=== PATIENT | female | born 1960 | race Caucasian/White ===

== ENCOUNTER 2016-05-24 23:45 | Emergency (ER) | payer MEDICARE, MEDICAID ==
[~2016-05-24] VITALS: Ht 160 cm; Wt 54.5 kg
[~2016-05-24 23:45] MED LIST: ABILIFY 10MG TA10 MG PO; ALBUTEROL0.09 MG/A1 IH; ANTIVERT 25MG25 MG PO; ATENOLOL; ATIVAN 0.50.5 MG/TAB PO; ATROVENT INHALE14 GM IH; BENADRYL25 M2 PO; CHANTIX0.5 MG PO; CLEOCIN HCL300 MG PO; CORTISPORIN OTI10 ML OT; DIAZEPAM PO; DOXYCYCLINE 10100 MG PO; DUONEB 3 MG/3 ML3 ML IH; FLEXERIL 1010 MG/TAB PO; FORADIL IH; INDERAL 10MG10 MG PO; IPRATROPIUM BROM3 M1 IH; LEVAQUIN 750MG750 M1 PO; LEXAPRO 10MG10 MG PO; LORTAB 5/500 501 TAB PO; MEDROL 4MG DOSPA4 MG PO; MS CONTIN 330 MG/TAB PO; NO HOME MEDICATIONS; NORCO 325 MG-51 TAB PO; NORCO 325 MG-7.1 TAB PO; PERCOCET 325 MG1 TA2 PO; PREDNISONE20 MG PO; PREMARIN0.625 MG PO; PROAIR HFA0.09 MG/AC IH; PROPRANOLOL; PROZAC 10MG10 MG PO; RISPERDAL 0.20.25 MG; RISPERDAL 0.20.25 MG PO; RISPERDAL 0.5M0.5 MG PO; RISPERDOL; RT ADVAIR 228 DISKUS IH; RT ALBUTER2.5 MG/0.5; SPIRIVA INH IH; SUDAFED30 MG PO; TYLENOL 500MG500 MG PO; TYLENOL ARTHRI650 M1 PO; TYLENOL W/COD1 UDTAB PO; ULTRAM 50MG TAB50 MG PO; VALIUM 5MG T5 MG/TAB PO; VOLTAREN 75 DR75 MG PO; WELLBUTRIN SR150 M1 PO; ZITHROMAX 250M250 MG PO; ZITHROMAX Z PA250 MG PO; ZOFRAN ODT4 MG PO; zyprexa
[2016-05-24 23:53] VITALS: TEMP 99.6
[2016-05-25] MEDS ORDERED: INDERAL 10MG10 MG PO (00:07)
[2016-05-25] MEDS ORDERED: VENTOLIN0.09 MG IH (00:07)
[2016-05-25] MEDS ORDERED: NORCO 325 MG-51 TAB PO (00:07)
[2016-05-25] MEDS ORDERED: VALIUM 5MG T5 MG/TAB PO (00:08)
[2016-05-25] MEDS ORDERED: BREO IH (00:08)
[2016-05-25 00:58] LABS: BASO # 0.1 (0.0-0.2); BASO % 0.5 % (0.0-2.0); EOS # 0.2 (0.0-0.7); EOS % 1.4 % (0-4.0); GRAN # 9.4 (1.4-6.5); HEMOGLOBIN 12.1 g/dl (12.5-16.0); LYMPH # 2.7 (1.2-3.4); LYMPH % 20.4 % (20.0-51.0); MEAN CELL VOLUME 89 fl (80.0-100.0); MEAN CORPUSCULAR HEMOGLOBIN 31 pg (27.0-31.0); MEAN CORPUSCULAR HGB CONC 34 g/dl (33.0-37.0); MEAN PLATELET VOLUME 10.1 fl (7.4-10.4); MONO # 0.9 (0.1-0.6); MONO % 6.4 % (1.7-9.3); PLATELET COUNT 229 K/mm3 (130-400); RED BLOOD COUNT 3.96 M/mm3 (4.10-5.30); REDCELL DISTRIBUTION WIDTH-CV 14.3 % (11.5-14.5); WHITE BLOOD COUNT 13.2 K/mm3 (4.8-10.8)
[2016-05-25 01:10] LABS: HEMATOCRIT 35.3 % (37.0-47.0); INFLUENZA B NEGATIVE
[2016-05-25 01:14] LABS: PH 5 (5-8); SQUAMOUS EPITHELIAL 0-2 /hpf; URINE APPEARANCE Clear; URINE BACTERIA None Seen /hpf; URINE BILIRUBIN Negative (NEGATIVE); URINE BLOOD 1+ (NEGATIVE); URINE COLOR Yellow; URINE GLUCOSE Negative (NEGATIVE); URINE KETONE Negative (NEGATIVE); URINE RBC 0-2 /hpf; URINE WBC 0-2 /hpf
[2016-05-25 01:40] LABS: ERYTHROCYTE SEDIMENTATION RATE 90 mm/hr (0-30)
[2016-05-25 02:01] LABS: ADJUSTED CALCIUM 8.8 mg/dL (8.4-10.2); ALBUMIN 3.8 gm/dL (3.5-5.0); BILIRUBIN,TOTAL 0.7 mg/dL (0.0-1.0); CALCIUM 8.6 mg/dL (8.4-10.2); CREATININE, serum 0.74 mg/dL (0.52-1.25); POTASSIUM 3.6 mmol/L (3.4-5.0); TOTAL PROTEIN 7.4 gm/dL (6.4-8.2)
[2016-05-25 02:35] LABS: C-REACTIVE PROTEIN 13.5 mg/dL (0.0-0.9)
[2016-05-25] MEDS ORDERED: ZITHROMAX 250M250 MG PO (02:54)
[2016-05-25 02:57] VITALS: BP 110/78; PULSE 92
[2016-05-26] MEDS ORDERED: PROVENTIL INH (17:57)
== END 2016-05-25 03:05 | disposition home or self-care (01) ==
LOC: COL.ER 23:45
PROVIDERS: Physician Assistant
DX: Z02.89 Encounter for other administrative examinations (principal)

== ENCOUNTER 2016-05-26 14:37 | Inpatient (IN) | payer MEDICARE, MEDICAID ==
[~2016-05-26] VITALS: Ht 160 cm; Wt 57.7 kg
[~2016-05-26 14:37] MED LIST changes: +BREO IH; +VENTOLIN0.09 MG IH
[2016-05-26 15:33] LABS: BASO # 0.1 (0.0-0.2); BASO % 0.5 % (0.0-2.0); EOS # 0.2 (0.0-0.7); EOS % 1.3 % (0-4.0); GRAN # 12.1 (1.4-6.5); GRAN % 81.2 % (42.2-75.2); HEMOGLOBIN 12.5 g/dl (12.5-16.0); LYMPH # 1.7 (1.2-3.4); LYMPH % 11.4 % (20.0-51.0); MEAN CELL VOLUME 89 fl (80.0-100.0); MEAN CORPUSCULAR HEMOGLOBIN 30 pg (27.0-31.0); MEAN CORPUSCULAR HGB CONC 34 g/dl (33.0-37.0); MEAN PLATELET VOLUME 9.9 fl (7.4-10.4); MONO # 0.8 (0.1-0.6); MONO % 5.2 % (1.7-9.3); PLATELET COUNT 268 K/mm3 (130-400); RED BLOOD COUNT 4.13 M/mm3 (4.10-5.30); WHITE BLOOD COUNT 14.9 K/mm3 (4.8-10.8)
[2016-05-26 15:33] LABS: ARTERIAL BLD GAS O2 SATURATION 98.3 % (92-100); ARTERIAL BLD GAS TCO2 CT 26.3; ARTERIAL BLOOD GAS BASE EXCESS 2.7 (-2-2); ARTERIAL BLOOD GAS HCO3 25.3 meq/L (22-26); OXYHEMOGLOBIN 96.9 %
[2016-05-26 15:34] LABS: HEMATOCRIT 36.6 % (37.0-47.0)
[2016-05-26 15:35] LABS: ARTERIAL BLOOD GAS PO2 135.3 mmHg (80-100); ARTERIAL BLOOD GAS PO2T 135.3 (80-100)
[2016-05-26 15:36] LABS: ALLEN TEST YES; ALLENS TEST RESULT PASS; ATS? YES
[2016-05-26 15:45] LABS: ADJUSTED CALCIUM 8.7 mg/dL (8.4-10.2); ALANINE AMINOTRANSFERASE 22 U/L (9-52); ALBUMIN 4.2 gm/dL (3.5-5.0); ALKALINE PHOSPHATASE 108 U/L (50-136); ANION GAP 13 mmol/L (7-16); BILIRUBIN,TOTAL 0.8 mg/dL (0.0-1.0); BLOOD UREA NITROGEN 8 mg/dL (7-17); CALCIUM 8.9 mg/dL (8.4-10.2); CARBON DIOXIDE 24 mmol/L (22-30); CHLORIDE 98 mmol/L (98-107); CREATININE, serum 0.69 mg/dL (0.52-1.25); GLUCOSE 90 mg/dL (74-106); SODIUM 135 mmol/L (137-145)
[2016-05-26 16:01] LABS: C-REACTIVE PROTEIN 21.2 mg/dL (0.0-0.9)
[2016-05-26 17:20] LABS: PH 5 (5-8); SQUAMOUS EPITHELIAL 0-2 /hpf; URINE APPEARANCE Clear; URINE BACTERIA None Seen /hpf; URINE BILIRUBIN Negative (NEGATIVE); URINE BLOOD 1+ (NEGATIVE); URINE COLOR Yellow; URINE GLUCOSE Negative (NEGATIVE); URINE KETONE Trace (NEGATIVE); URINE RBC 0-2 /hpf; URINE WBC 0-2 /hpf
[2016-05-26 17:52] LABS: TROPONIN-I < 0.012 ng/mL (0.000-0.034)
[2016-05-26] MEDS ORDERED: PROVENTIL INH (17:57)
[2016-05-26 18:55] VITALS: BP 126/72; PULSE 97; TEMP 97.5
[2016-05-27 00:35] VITALS: BP 122/74; PULSE 99; TEMP 98.4
[2016-05-27 04:04] VITALS: BP 106/61; PULSE 89; TEMP 96.9
[2016-05-27 08:00] LABS: BASO % 0.1 % (0.0-2.0); GRAN # 8.2 (1.4-6.5); GRAN % 92.5 % (42.2-75.2); LYMPH # 0.6 (1.2-3.4); LYMPH % 6.3 % (20.0-51.0); MEAN CELL VOLUME 90 fl (80.0-100.0); MEAN CORPUSCULAR HGB CONC 33 g/dl (33.0-37.0); MEAN PLATELET VOLUME 10.1 fl (7.4-10.4); MONO # 0.1 (0.1-0.6); MONO % 0.6 % (1.7-9.3); PLATELET COUNT 227 K/mm3 (130-400); RED BLOOD COUNT 3.45 M/mm3 (4.10-5.30); REDCELL DISTRIBUTION WIDTH-CV 14.1 % (11.5-14.5); WHITE BLOOD COUNT 8.8 K/mm3 (4.8-10.8)
[2016-05-27 08:01] VITALS: BP 138/78; PULSE 105; TEMP 99
[2016-05-27 08:12] LABS: ANION GAP 9 mmol/L (7-16); BLOOD UREA NITROGEN 7 mg/dL (7-17); CALCIUM 7.8 mg/dL (8.4-10.2); CARBON DIOXIDE 24 mmol/L (22-30); CHLORIDE 105 mmol/L (98-107); CREATININE, serum 0.56 mg/dL (0.52-1.25); GLUCOSE 186 mg/dL (74-106); POTASSIUM 3.8 mmol/L (3.4-5.0); SODIUM 138 mmol/L (137-145)
[2016-05-27 08:17] LABS: HEMATOCRIT 31.2 % (37.0-47.0); HEMOGLOBIN 10.3 g/dl (12.5-16.0); MEAN CORPUSCULAR HEMOGLOBIN 30 pg (27.0-31.0)
[2016-05-27 08:27] LABS: TROPONIN-I < 0.012 ng/mL (0.000-0.034)
[2016-05-27 11:01] LABS: ADD PATHOLOGY DIFF REVIEW NO
[2016-05-27 11:15] VITALS: BP 110/57; PULSE 104; TEMP 97.8
[2016-05-27 12:02] LABS: BAND 5 % (0-10); NEUTROPHILS 84 % (42.0-75.2); PLATELET ESTIMATE NORMAL (NORMAL); TOTAL CELLS COUNTED 100
[2016-05-27 15:49] VITALS: BP 140/78; PULSE 93
[2016-05-27 19:58] VITALS: BP 170/92; PULSE 80; TEMP 97.3
[2016-05-28] VITALS (7 sets, daily range): BP systolic 103–147; BP diastolic 62–85; PULSE 70–78; TEMP 97.3–98.7
[2016-05-28 08:10] LABS: BASO % 0.3 % (0.0-2.0); EOS % 0.1 % (0-4.0); GRAN # 7.4 (1.4-6.5); LYMPH # 2.1 (1.2-3.4); LYMPH % 20.9 % (20.0-51.0); MEAN CORPUSCULAR HGB CONC 32 g/dl (33.0-37.0); MEAN PLATELET VOLUME 10.2 fl (7.4-10.4); MONO # 0.4 (0.1-0.6); MONO % 3.8 % (1.7-9.3); PLATELET COUNT 240 K/mm3 (130-400); RED BLOOD COUNT 3.27 M/mm3 (4.10-5.30); REDCELL DISTRIBUTION WIDTH-CV 14.4 % (11.5-14.5)
[2016-05-28 08:17] LABS: ADJUSTED CALCIUM 8.5 mg/dL (8.4-10.2); ALBUMIN 2.8 gm/dL (3.5-5.0); BILIRUBIN,TOTAL 0.3 mg/dL (0.0-1.0); CALCIUM 7.5 mg/dL (8.4-10.2); CREATININE, serum 0.61 mg/dL (0.52-1.25); POTASSIUM 4.6 mmol/L (3.4-5.0); TOTAL PROTEIN 5.6 gm/dL (6.4-8.2)
[2016-05-28 08:27] LABS: HEMATOCRIT 31.1 % (37.0-47.0); HEMOGLOBIN 9.8 g/dl (12.5-16.0); MEAN CELL VOLUME 95 fl (80.0-100.0); MEAN CORPUSCULAR HEMOGLOBIN 30 pg (27.0-31.0)
[2016-05-29 03:30] VITALS: BP 164/93; PULSE 79; TEMP 98.6
[2016-05-29 08:11] LABS: BASO # 0.1 (0.0-0.2); BASO % 0.7 % (0.0-2.0); EOS # 0.3 (0.0-0.7); EOS % 2.4 % (0-4.0); GRAN # 9.1 (1.4-6.5); GRAN % 74.3 % (42.2-75.2); HEMATOCRIT 38.2 % (37.0-47.0); LYMPH # 2.2 (1.2-3.4); LYMPH % 17.6 % (20.0-51.0); MEAN CELL VOLUME 93 fl (80.0-100.0); MEAN CORPUSCULAR HEMOGLOBIN 30 pg (27.0-31.0); MEAN CORPUSCULAR HGB CONC 32 g/dl (33.0-37.0); MEAN PLATELET VOLUME 9.7 fl (7.4-10.4); MONO # 0.5 (0.1-0.6); PLATELET COUNT 319 K/mm3 (130-400); REDCELL DISTRIBUTION WIDTH-CV 14.3 % (11.5-14.5); WHITE BLOOD COUNT 12.2 K/mm3 (4.8-10.8)
[2016-05-29 08:17] LABS: HEMOGLOBIN 12.3 g/dl (12.5-16.0)
[2016-05-29 08:28] LABS: ALBUMIN 3.2 gm/dL (3.5-5.0); CALCIUM 8.3 mg/dL (8.4-10.2); CREATININE, serum 0.71 mg/dL (0.52-1.25); POTASSIUM 3.9 mmol/L (3.4-5.0)
[2016-05-29 09:25] VITALS: BP 164/84; PULSE 92; TEMP 98.9
[2016-05-29 13:28] VITALS: BP 142/70; PULSE 86; TEMP 98.5
[2016-05-29 16:05] VITALS: BP 119/50; PULSE 83; TEMP 99.2
[2016-05-29 19:52] VITALS: BP 141/72; PULSE 83; TEMP 98.7
[2016-05-29 22:46] VITALS: BP 138/66; PULSE 74; TEMP 97.7
[2016-05-30 03:13] VITALS: BP 121/70; PULSE 70; TEMP 97.9
[2016-05-30 08:09] VITALS: BP 102/61; PULSE 69; TEMP 97.7
[2016-05-30 12:03] VITALS: BP 105/61; PULSE 66; TEMP 97.6
[2016-05-30 16:34] VITALS: BP 132/72; PULSE 78; TEMP 97.8
[2016-05-30 20:17] VITALS: BP 109/72; PULSE 91; TEMP 97.9
[2016-05-31] VITALS (7 sets, daily range): BP systolic 100–149; BP diastolic 54–92; PULSE 70–98; TEMP 97.2–98.6
[2016-05-31 07:40] LABS: PROTHROMBIN TIME 10.6 SECONDS (9.7-12.8)
[2016-06-01 00:45] VITALS: BP 118/57; PULSE 77; TEMP 98.5
[2016-06-01 02:33] VITALS: BP 115/52; PULSE 68; TEMP 98.2
[2016-06-01 08:37] VITALS: BP 133/78; PULSE 77; TEMP 98.1
[2016-06-01 12:07] VITALS: BP 121/56; PULSE 81; TEMP 98.5
[2016-06-01 16:04] VITALS: BP 133/64; PULSE 70; TEMP 98.3
[2016-06-01 20:22] VITALS: BP 131/45; PULSE 95; TEMP 98.5
[2016-06-02] VITALS (7 sets, daily range): BP systolic 105–141; BP diastolic 46–69; PULSE 64–86; TEMP 98.1–98.7
[2016-06-03] VITALS (7 sets, daily range): BP systolic 100–147; BP diastolic 46–72; PULSE 58–75; TEMP 97.4–98.6
[2016-06-03] MEDS ORDERED: IPRATROPIUM BROM3 M1 IH ×2 (14:15)
[2016-06-03] MEDS ORDERED: LEVAQUIN 750MG750 M1 PO (14:15)
[2016-06-03] MEDS ORDERED: PERFOROMIS20 MCG/2 M IH (14:15)
[2016-06-03] MEDS ORDERED: PULMICORT R1 MG/2 ML IH (14:19)
[2016-06-03] MEDS ORDERED: MIRALAX PA17 GM/Dose PO (14:20)
[2016-06-03] MEDS ORDERED: SENOKOT S 50 MG1 TAB PO (14:20)
[2016-06-03] MEDS ORDERED: DULCOLAX S10 MG/SUPP RC (14:21)
[2016-06-03] MEDS ORDERED: VALIUM 5MG T5 MG/TAB PO (14:21)
[2016-06-03] MEDS ORDERED: NORCO 325 MG-51 TAB PO (14:21)
== END 2016-06-03 16:40 | DRG 190 ==
LOC: COL.ER 14:37 → MEDICAL 17:21
PROVIDERS: Family Medicine; Internal Medicine; Internal Medicine Pulmonary Disease; Nurse Practitioner Family
PROC: 0B9B8ZX Drainage of Left Lower Lobe Bronchus, Via Natural or Artificial Opening Endoscopic, Diagnostic (ICD-10-PCS; 2016-05-31)
PROC: 0B988ZX Drainage of Left Upper Lobe Bronchus, Via Natural or Artificial Opening Endoscopic, Diagnostic (ICD-10-PCS; 2016-05-31)
PROC: 0B948ZX Drainage of Right Upper Lobe Bronchus, Via Natural or Artificial Opening Endoscopic, Diagnostic (ICD-10-PCS; principal; 2016-05-31 10:00)
DX: J44.0 Chronic obstructive pulmonary disease with (acute) lower respiratory infection (principal); J18.9 Pneumonia, unspecified organism; J96.01 Acute respiratory failure with hypoxia; E87.3 Alkalosis; F20.9 Schizophrenia, unspecified; L93.0 Discoid lupus erythematosus; F17.210 Nicotine dependence, cigarettes, uncomplicated; R91.8 Other nonspecific abnormal finding of lung field
CPT/HCPCS: 99222-AI; 99232-AI; 99233-AI; 99239; J0456; J1170; J1650; J1956; J2270; J2405; J2704; J2930; J7030; J7050; J7120; Q9967

== ENCOUNTER → 2016-06-14 | Outpatient (CLI) | payer MEDICARE, MEDICAID ==
[~2016-06-14] MED LIST changes: +DULCOLAX S10 MG/SUPP RC; +MIRALAX PA17 GM/Dose PO; +PERFOROMIS20 MCG/2 M IH; +PROVENTIL INH; +PULMICORT R1 MG/2 ML IH; +SENOKOT S 50 MG1 TAB PO
== END ==
LOC: COL.PUL 11:18
DX: R06.02 Shortness of breath (principal)

== ENCOUNTER 2017-04-06 09:03 | Emergency (ER) | payer MEDICARE, MEDICAID ==
[~2017-04-06] VITALS: Ht 160 cm; Wt 55.5 kg
[2017-04-06 09:09] VITALS: BP 132/93; TEMP 97.5
[2017-04-06] MEDS ORDERED: CLEOCIN HC150 MG/CAP PO (09:22)
[2017-04-06 09:30] VITALS: PULSE 75
== END 2017-04-06 09:30 | disposition home or self-care (01) ==
LOC: COL.ER 09:03
DX: H66.92 Otitis media, unspecified, left ear (principal); H72.92 Unspecified perforation of tympanic membrane, left ear; Z79.52 Long term (current) use of systemic steroids

== ENCOUNTER → 2017-10-12 | Outpatient (CLI) | payer MEDICARE, MEDICAID ==
[~2017-10-12] VITALS: Ht 160 cm; Wt 59.2 kg
[~2017-10-12] MED LIST changes: +CALCIUM 600 PLU1 TAB PO; +CALCIUM CARBON650 M2 PO; +CLEOCIN HC150 MG/CAP PO; +VITAMIND3 5000 PO
[2017-10-12 13:51] VITALS: BP 125/75; PULSE 88
[2017-10-12 14:45] VITALS: BP 146/91; PULSE 68
== END ==
LOC: COL.RAD 13:00
DX: M54.42 Lumbago with sciatica, left side (principal); M54.41 Lumbago with sciatica, right side; G89.29 Other chronic pain
CPT/HCPCS: J3301

== ENCOUNTER 2017-11-15 07:10 | Emergency (ER) | payer MEDICARE, MEDICAID ==
[~2017-11-15] VITALS: Ht 160 cm; Wt 59.1 kg
[2017-11-15 07:14] VITALS: BP 158/80; PULSE 81; TEMP 98.7
[2017-11-15] MEDS ORDERED: CLEOCIN HCL300 MG PO (07:33)
== END 2017-11-15 07:48 | disposition home or self-care (01) ==
LOC: COL.ER 07:10
DX: K08.89 Other specified disorders of teeth and supporting structures (principal); F32.9 Major depressive disorder, single episode, unspecified; F17.210 Nicotine dependence, cigarettes, uncomplicated; Z90.89 Acquired absence of other organs; Z90.49 Acquired absence of other specified parts of digestive tract; Z98.890 Other specified postprocedural states; Z88.1 Allergy status to other antibiotic agents; Z88.8 Allergy status to other drugs, medicaments and biological substances; Z88.6 Allergy status to analgesic agent; Z88.0 Allergy status to penicillin

== ENCOUNTER 2018-01-07 13:10 | Emergency (ER) | payer MEDICARE, MEDICAID ==
[~2018-01-07] VITALS: Ht 160 cm; Wt 59.1 kg
[2018-01-07 13:45] LABS: BASO # 0.1 (0.0-0.2); BASO % 0.9 % (0.0-2.0); EOS # 0.1 (0.0-0.7); EOS % 1.3 % (0-4.0); GRAN # 5.4 (1.4-6.5); GRAN % 67.3 % (42.2-75.2); HEMATOCRIT 38.6 % (37.0-47.0); HEMOGLOBIN 13.2 g/dl (12.5-16.0); LYMPH # 1.9 (1.2-3.4); LYMPH % 23.5 % (20.0-51.0); MEAN CELL VOLUME 94 fl (80.0-100.0); MEAN CORPUSCULAR HEMOGLOBIN 32 pg (27.0-31.0); MEAN CORPUSCULAR HGB CONC 34 g/dl (33.0-37.0); MEAN PLATELET VOLUME 10.3 fl (7.4-10.4); MONO # 0.6 (0.1-0.6); MONO % 6.9 % (1.7-9.3); PLATELET COUNT 180 K/mm3 (130-400); RED BLOOD COUNT 4.13 M/mm3 (4.10-5.30); REDCELL DISTRIBUTION WIDTH-CV 14.1 % (11.5-14.5)
[2018-01-07] MEDS ORDERED: INCRUSE EL62.5 MCG/A IH (13:52)
[2018-01-07] MEDS ORDERED: BREO IH (13:52)
[2018-01-07 13:57] LABS: ALBUMIN 4.2 gm/dL (3.5-5.0); BILIRUBIN,TOTAL 0.5 mg/dL (0.0-1.0); CALCIUM 8.3 mg/dL (8.4-10.2); CREATININE, serum 0.74 mg/dL (0.52-1.25); POTASSIUM 4.1 mmol/L (3.4-5.0); TOTAL PROTEIN 7.6 gm/dL (6.4-8.2)
[2018-01-07 14:59] LABS: COLLECTION METHOD CLEAN CATCH
[2018-01-07 15:09] LABS: MUCOUS Present /lpf; PH 5 (5-8); SQUAMOUS EPITHELIAL 0-2 /hpf; URINE APPEARANCE Clear; URINE BACTERIA None Seen /hpf; URINE BILIRUBIN Negative (NEGATIVE); URINE BLOOD 1+ (NEGATIVE); URINE COLOR Yellow; URINE GLUCOSE Negative (NEGATIVE); URINE KETONE Negative (NEGATIVE); URINE LEUKOCYTE ESTERASE Negative (NEGATIVE); URINE NITRATE Negative (NEGATIVE); URINE PROTEIN(semi-quant) Negative (NEGATIVE); URINE RBC 0-2 /hpf; URINE UROBILINOGEN Negative (NEGATIVE)
[2018-01-07 15:30] VITALS: TEMP 99.9
[2018-01-07] MEDS ORDERED: PREDNISONE20 MG PO (16:54)
[2018-01-07] MEDS ORDERED: LEVAQUIN 750MG750 M1 PO (16:54)
[2018-01-07] MEDS ORDERED: PROAIR HFA0.09 MG/AC IH (17:03)
[2018-01-07 17:15] VITALS: BP 127/70; PULSE 94
== END 2018-01-07 17:43 | disposition home or self-care (01) ==
LOC: COL.ER 13:10
PROVIDERS: Family Medicine
DX: J44.1 Chronic obstructive pulmonary disease with (acute) exacerbation (principal); B34.9 Viral infection, unspecified; F20.9 Schizophrenia, unspecified; F32.9 Major depressive disorder, single episode, unspecified; F41.9 Anxiety disorder, unspecified; F17.210 Nicotine dependence, cigarettes, uncomplicated; Z90.710 Acquired absence of both cervix and uterus; Z90.49 Acquired absence of other specified parts of digestive tract
CPT/HCPCS: J1170; J2405; J7030; J7512

== ENCOUNTER 2018-01-17 02:21 | Emergency (ER) | payer MEDICARE, MEDICAID ==
[~2018-01-17] VITALS: Ht 160 cm; Wt 58.6 kg
[~2018-01-17 02:21] MED LIST changes: +INCRUSE EL62.5 MCG/A IH
[2018-01-17 02:26] VITALS: TEMP 97.5
[2018-01-17 02:52] LABS: BASO # 0.1 (0.0-0.2); BASO % 0.5 % (0.0-2.0); EOS # 0.6 (0.0-0.7); EOS % 5.5 % (0-4.0); GRAN # 5.9 (1.4-6.5); GRAN % 53.1 % (42.2-75.2); HEMATOCRIT 43.1 % (37.0-47.0); HEMOGLOBIN 14.4 g/dl (12.5-16.0); LYMPH # 3.9 (1.2-3.4); MEAN CELL VOLUME 95 fl (80.0-100.0); MEAN CORPUSCULAR HEMOGLOBIN 32 pg (27.0-31.0); MEAN CORPUSCULAR HGB CONC 33 g/dl (33.0-37.0); MEAN PLATELET VOLUME 9.4 fl (7.4-10.4); MONO # 0.6 (0.1-0.6); MONO % 5.4 % (1.7-9.3); PLATELET COUNT 260 K/mm3 (130-400); RED BLOOD COUNT 4.56 M/mm3 (4.10-5.30); REDCELL DISTRIBUTION WIDTH-CV 14.1 % (11.5-14.5)
[2018-01-17 03:03] LABS: ALBUMIN 3.9 gm/dL (3.5-5.0); BILIRUBIN,TOTAL 0.4 mg/dL (0.0-1.0); CALCIUM 8.8 mg/dL (8.4-10.2); CREATININE, serum 0.77 mg/dL (0.52-1.25); POTASSIUM 4.5 mmol/L (3.4-5.0); TOTAL PROTEIN 7.2 gm/dL (6.4-8.2)
[2018-01-17 03:07] LABS: COLLECTION METHOD CLEAN CATCH
[2018-01-17 03:12] LABS: MUCOUS Present /lpf; PH 6 (5-8); SQUAMOUS EPITHELIAL None Seen /hpf; URINE APPEARANCE Clear; URINE BACTERIA None Seen /hpf; URINE BILIRUBIN Negative (NEGATIVE); URINE BLOOD Negative (NEGATIVE); URINE COLOR Straw; URINE GLUCOSE Negative (NEGATIVE); URINE KETONE Negative (NEGATIVE); URINE LEUKOCYTE ESTERASE Negative (NEGATIVE); URINE NITRATE Negative (NEGATIVE); URINE PROTEIN(semi-quant) Negative (NEGATIVE); URINE RBC 0-2 /hpf; URINE UROBILINOGEN Negative (NEGATIVE); URINE WBC 0-2 /hpf
[2018-01-17] MEDS ORDERED: ZOFRAN 4MG T4 MG/TAB PO (06:08)
[2018-01-17] MEDS ORDERED: FLOMAX 0.40.4 MG/CAP PO (06:08)
[2018-01-17] MEDS ORDERED: NORCO 325 MG-51 TAB PO (06:08)
[2018-01-17 06:18] VITALS: BP 161/94; PULSE 65
== END 2018-01-17 06:35 | disposition home or self-care (01) ==
LOC: COL.ER 02:21
PROVIDERS: Emergency Medicine
DX: N20.2 Calculus of kidney with calculus of ureter (principal); N23 Unspecified renal colic; J44.9 Chronic obstructive pulmonary disease, unspecified; F20.9 Schizophrenia, unspecified; F32.9 Major depressive disorder, single episode, unspecified; F41.9 Anxiety disorder, unspecified; F17.210 Nicotine dependence, cigarettes, uncomplicated; Z79.51 Long term (current) use of inhaled steroids
CPT/HCPCS: J1170; J1885; J2270; J2405; J7030; Q9967

== ENCOUNTER 2018-01-21 21:03 | Emergency (ER) | payer MEDICARE, MEDICAID ==
[~2018-01-21] VITALS: Ht 160 cm; Wt 58.6 kg
[~2018-01-21 21:03] MED LIST changes: +FLOMAX 0.40.4 MG/CAP PO; +ZOFRAN 4MG T4 MG/TAB PO
[2018-01-21 21:07] VITALS: TEMP 98.3
[2018-01-21 21:22] LABS: BASO # 0.1 (0.0-0.2); EOS # 0.4 (0.0-0.7); EOS % 4.2 % (0-4.0); GRAN # 4.3 (1.4-6.5); GRAN % 52.4 % (42.2-75.2); HEMATOCRIT 38.8 % (37.0-47.0); HEMOGLOBIN 13.1 g/dl (12.5-16.0); LYMPH % 36.4 % (20.0-51.0); MEAN CELL VOLUME 95 fl (80.0-100.0); MEAN CORPUSCULAR HEMOGLOBIN 32 pg (27.0-31.0); MEAN CORPUSCULAR HGB CONC 34 g/dl (33.0-37.0); MEAN PLATELET VOLUME 9.4 fl (7.4-10.4); MONO # 0.5 (0.1-0.6); MONO % 5.8 % (1.7-9.3); PLATELET COUNT 223 K/mm3 (130-400); RED BLOOD COUNT 4.09 M/mm3 (4.10-5.30); REDCELL DISTRIBUTION WIDTH-CV 14.6 % (11.5-14.5)
[2018-01-21 21:31] LABS: BILIRUBIN,TOTAL 0.4 mg/dL (0.0-1.0); CALCIUM 9.1 mg/dL (8.4-10.2); CREATININE, serum 0.74 mg/dL (0.52-1.25); POTASSIUM 3.9 mmol/L (3.4-5.0); TOTAL PROTEIN 7.1 gm/dL (6.4-8.2)
[2018-01-21 21:56] LABS: COLLECTION METHOD CLEAN CATCH
[2018-01-21 22:03] LABS: MUCOUS Present /lpf; PH 5 (5-8); SQUAMOUS EPITHELIAL 0-2 /hpf; URINE APPEARANCE Clear; URINE BACTERIA None Seen /hpf; URINE BILIRUBIN Negative (NEGATIVE); URINE BLOOD Negative (NEGATIVE); URINE COLOR Yellow; URINE GLUCOSE Negative (NEGATIVE); URINE KETONE Negative (NEGATIVE); URINE LEUKOCYTE ESTERASE Negative (NEGATIVE); URINE NITRATE Negative (NEGATIVE); URINE PROTEIN(semi-quant) Negative (NEGATIVE); URINE RBC 0-2 /hpf; URINE UROBILINOGEN Negative (NEGATIVE)
[2018-01-21] MEDS ORDERED: NORCO 325 MG-51 TAB PO (22:31)
[2018-01-21] MEDS ORDERED: FLOMAX 0.40.4 MG/CAP PO (22:47)
[2018-01-21 23:01] VITALS: BP 119/72; PULSE 67
== END 2018-01-21 23:03 | disposition home or self-care (01) ==
LOC: COL.ER 21:03
PROVIDERS: Emergency Medicine
DX: R10.11 Right upper quadrant pain (principal); Z87.442 Personal history of urinary calculi; Z90.89 Acquired absence of other organs; Z98.890 Other specified postprocedural states; Z79.51 Long term (current) use of inhaled steroids
CPT/HCPCS: J0780; J1170; J1885; J7030

== ENCOUNTER 2018-01-24 15:42 | Emergency (ER) | payer MEDICARE, MEDICAID ==
[~2018-01-24] VITALS: Ht 160 cm; Wt 59.1 kg
[~2018-01-24 15:42] MED LIST changes: -PREDNISONE10 MG PO; -VICODIN 5/300 PO; -ZOVIRAX800 MG PO
[2018-01-24 15:46] VITALS: TEMP 98.2
[2018-01-24] MEDS ORDERED: PREDNISONE10 MG PO (16:03)
[2018-01-24] MEDS ORDERED: ZOVIRAX800 MG PO (16:03)
[2018-01-24] MEDS ORDERED: VICODIN 5/300 PO (16:05)
[2018-01-24 16:17] VITALS: BP 133/77; PULSE 76
== END 2018-01-24 16:17 | disposition home or self-care (01) ==
LOC: COL.ER 15:42
DX: B02.9 Zoster without complications (principal); J44.9 Chronic obstructive pulmonary disease, unspecified; Z87.442 Personal history of urinary calculi; Z79.51 Long term (current) use of inhaled steroids
CPT/HCPCS: J2270; J2550

== ENCOUNTER → 2018-01-24 | Outpatient (CLI) | payer MEDICARE, MEDICAID ==
[~2018-01-24] MED LIST changes: +PREDNISONE10 MG PO; +VICODIN 5/300 PO; +ZOVIRAX800 MG PO
== END ==
LOC: COL.RAD 13:52
DX: N20.1 Calculus of ureter (principal); N28.89 Other specified disorders of kidney and ureter
CPT/HCPCS: Q9967

== ENCOUNTER 2018-06-19 22:01 | Emergency (ER) | payer MEDICARE, MEDICAID ==
[~2018-06-19] VITALS: Ht 160 cm; Wt 45.5 kg
[~2018-06-19 22:01] MED LIST changes: +PREDNISONE10 MG PO; +VICODIN 5/300 PO; +ZOVIRAX800 MG PO
[2018-06-19 22:06] VITALS: TEMP 97.9
[2018-06-19 23:38] LABS: BASO # 0.1 (0.0-0.2); BASO % 0.7 % (0.0-2.0); EOS # 0.5 (0.0-0.7); EOS % 6.1 % (0-4.0); GRAN % 44.8 % (42.2-75.2); HEMOGLOBIN 13.6 g/dl (12.5-16.0); LYMPH # 3.9 (1.2-3.4); LYMPH % 43.9 % (20.0-51.0); MEAN CELL VOLUME 94 fl (80.0-100.0); MEAN CORPUSCULAR HEMOGLOBIN 31 pg (27.0-31.0); MEAN CORPUSCULAR HGB CONC 33 g/dl (33.0-37.0); MONO # 0.4 (0.1-0.6); MONO % 4.3 % (1.7-9.3); PLATELET COUNT 239 K/mm3 (130-400); RED BLOOD COUNT 4.38 M/mm3 (4.10-5.30); REDCELL DISTRIBUTION WIDTH-CV 14.4 % (11.5-14.5)
[2018-06-19 23:50] LABS: ALANINE AMINOTRANSFERASE 8 U/L (9-52); ALBUMIN 4.2 gm/dL (3.5-5.0); ALKALINE PHOSPHATASE 76 U/L (50-136); ANION GAP 10 mmol/L (7-16); AST,SGOT 55 U/L (15-37); BILIRUBIN,TOTAL 0.3 mg/dL (0.0-1.0); BLOOD UREA NITROGEN 12 mg/dL (7-17); C-REACTIVE PROTEIN 1.1 mg/dL (0.0-0.9); CARBON DIOXIDE 25 mmol/L (22-30); CHLORIDE 107 mmol/L (98-107); CREATININE, serum 0.68 (0.52-1.25); GLUCOSE 98 mg/dL (74-106); POTASSIUM 4.1 mmol/L (3.4-5.0); SODIUM 142 mmol/L (137-145); TOTAL PROTEIN 7.9 gm/dL (6.4-8.2)
[2018-06-20] LABS: TROPONIN-I < 0.012 ng/mL (0.000-0.035)
[2018-06-20 00:19] LABS: INR 0.9 (0.8-3.0)
[2018-06-20 00:22] LABS: PARTIAL THROMBOPLASTIN TIME 38.6 SECONDS (26.0-37.0)
[2018-06-20 00:44] VITALS: BP 148/82
[2018-06-20 00:53] LABS: ARTERIAL BLOOD GAS BASE EXCESS -5.6 (-2-2); ARTERIAL BLOOD GAS HCO3 18.9 meq/L (22-26); ARTERIAL BLOOD GAS PO2 66.6 mmHg (80-100); ARTERIAL BLOOD GAS pH 7.36 (7.35-7.45)
[2018-06-20] MEDS ORDERED: PREDNISONE20 MG PO (02:23)
[2018-06-20] MEDS ORDERED: DOXYCYCLINE 10100 MG PO (02:23)
[2018-06-20 02:44] VITALS: PULSE 77
== END 2018-06-20 02:45 | disposition home or self-care (01) ==
LOC: COL.ER 22:01
PROVIDERS: Emergency Medicine
DX: J44.1 Chronic obstructive pulmonary disease with (acute) exacerbation (principal); F41.9 Anxiety disorder, unspecified; F17.210 Nicotine dependence, cigarettes, uncomplicated; Z79.51 Long term (current) use of inhaled steroids
CPT/HCPCS: J1170; J2930; J7030

== ENCOUNTER 2018-08-11 10:24 | Emergency (ER) | payer MEDICARE, MEDICAID ==
[~2018-08-11] VITALS: Ht 160 cm; Wt 52.3 kg
[2018-08-11 10:33] VITALS: TEMP 97
[2018-08-11] MEDS ORDERED: ZOFRAN 4MG T4 MG/TAB PO (11:16)
[2018-08-11] MEDS ORDERED: NORCO 325 MG-51 TAB PO (11:16)
[2018-08-11 11:58] VITALS: BP 135/86; PULSE 67
== END 2018-08-11 12:04 | disposition home or self-care (01) ==
LOC: COL.ER 10:24
DX: S52.501A Unspecified fracture of the lower end of right radius, initial encounter for closed fracture (principal); I10 Essential (primary) hypertension; F32.9 Major depressive disorder, single episode, unspecified; F41.9 Anxiety disorder, unspecified; J44.9 Chronic obstructive pulmonary disease, unspecified; F25.9 Schizoaffective disorder, unspecified; Z88.0 Allergy status to penicillin; W19.XXXA Unspecified fall, initial encounter; Y92.009 Unspecified place in unspecified non-institutional (private) residence as the place of occurrence of the external cause
CPT/HCPCS: Q4050

== ENCOUNTER 2018-08-13 18:48 | Emergency (ER) | payer MEDICARE, MEDICAID ==
[~2018-08-13] VITALS: Ht 160 cm; Wt 52.7 kg
[2018-08-13 18:53] VITALS: TEMP 97.5
[2018-08-13 21:05] VITALS: BP 136/94; PULSE 69
== END 2018-08-13 21:03 | disposition home or self-care (01) ==
LOC: COL.ER 18:48
DX: S52.501A Unspecified fracture of the lower end of right radius, initial encounter for closed fracture (principal); S52.601A Unspecified fracture of lower end of right ulna, initial encounter for closed fracture; W19.XXXA Unspecified fall, initial encounter

== ENCOUNTER 2018-12-10 00:10 | Emergency (ER) | payer MEDICARE, MEDICAID ==
[~2018-12-10] VITALS: Ht 160 cm; Wt 50.5 kg
[2018-12-10 00:37] VITALS: BP 145/80; TEMP 97.4
[2018-12-10 04:01] LABS: BASO # 0.1 (0.0-0.2); BASO % 1.1 % (0.0-2.0); EOS # 0.5 (0.0-0.7); EOS % 6.7 % (0-4.0); GRAN # 2.6 (1.4-6.5); GRAN % 34.6 % (42.2-75.2); HEMATOCRIT 39.6 % (37.0-47.0); HEMOGLOBIN 13.2 g/dl (12.5-16.0); LYMPH # 3.9 (1.2-3.4); LYMPH % 51.8 % (20.0-51.0); MEAN CELL VOLUME 92 fl (80.0-100.0); MEAN CORPUSCULAR HEMOGLOBIN 31 pg (27.0-31.0); MEAN CORPUSCULAR HGB CONC 33 g/dl (33.0-37.0); MONO # 0.4 (0.1-0.6); MONO % 5.7 % (1.7-9.3); PLATELET COUNT 231 K/mm3 (130-400); RED BLOOD COUNT 4.31 M/mm3 (4.10-5.30); REDCELL DISTRIBUTION WIDTH-CV 13.8 % (11.5-14.5)
[2018-12-10 04:14] LABS: ALANINE AMINOTRANSFERASE < 6 U/L (9-52); ALKALINE PHOSPHATASE 68 U/L (50-136); ANION GAP 8 mmol/L (7-16); AST,SGOT 45 U/L (15-37); BILIRUBIN,TOTAL 0.2 mg/dL (0.0-1.0); BLOOD UREA NITROGEN 12 mg/dL (7-17); C-REACTIVE PROTEIN < 0.5 mg/dL (0.0-0.9); CALCIUM 8.6 mg/dL (8.4-10.2); CARBON DIOXIDE 25 mmol/L (22-30); CHLORIDE 105 mmol/L (98-107); CREATININE, serum 0.71 (0.52-1.25); GLUCOSE 108 mg/dL (74-106); POTASSIUM 3.7 mmol/L (3.4-5.0); SODIUM 139 mmol/L (137-145); TOTAL PROTEIN 7.2 gm/dL (6.4-8.2)
[2018-12-10] MEDS ORDERED: CIPRODEX OT ×2 (05:45)
[2018-12-10] MEDS ORDERED: CLEOCIN HCL300 MG PO (05:45)
[2018-12-10 06:06] VITALS: PULSE 70
== END 2018-12-10 06:06 | disposition home or self-care (01) ==
LOC: COL.ER 00:10
PROVIDERS: Emergency Medicine
DX: H60.92 Unspecified otitis externa, left ear (principal); J44.9 Chronic obstructive pulmonary disease, unspecified; F20.9 Schizophrenia, unspecified; F17.210 Nicotine dependence, cigarettes, uncomplicated; Z79.51 Long term (current) use of inhaled steroids

== ENCOUNTER 2019-04-25 07:37 | Emergency (ER) | payer MEDICARE, MEDICAID ==
[~2019-04-25] VITALS: Ht 160 cm; Wt 54.5 kg
[~2019-04-25 07:37] MED LIST changes: +CIPRODEX OT
[2019-04-25 07:38] VITALS: TEMP 98.7
[2019-04-25 08:28] LABS: ARTERIAL BLD GAS O2 SATURATION 92.7 % (92-100); ARTERIAL BLD GAS TCO2 CT 21.5; ARTERIAL BLOOD GAS BASE EXCESS -3.6 (-2-2); ARTERIAL BLOOD GAS HCO3 20.4 meq/L (22-26); ARTERIAL BLOOD GAS PCO2 33.8 mmHg (35-45); ARTERIAL BLOOD GAS PO2 63.2 mmHg (80-100)
[2019-04-25 08:42] LABS: BASO # 0.1 (0.0-0.2); EOS % 0.5 % (0-4.0); GRAN # 4.9 (1.4-6.5); HEMATOCRIT 40.4 % (37.0-47.0); HEMOGLOBIN 13.4 g/dl (12.5-16.0); LYMPH # 0.7 (1.2-3.4); LYMPH % 11.9 % (20.0-51.0); MEAN CELL VOLUME 95 fl (80.0-100.0); MEAN CORPUSCULAR HEMOGLOBIN 32 pg (27.0-31.0); MEAN CORPUSCULAR HGB CONC 33 g/dl (33.0-37.0); MEAN PLATELET VOLUME 10.1 fl (7.4-10.4); MONO # 0.4 (0.1-0.6); MONO % 7.1 % (1.7-9.3); PLATELET COUNT 219 K/mm3 (130-400); RED BLOOD COUNT 4.26 M/mm3 (4.10-5.30); REDCELL DISTRIBUTION WIDTH-CV 13.8 % (11.5-14.5)
[2019-04-25 08:55] LABS: ALBUMIN 4.3 gm/dL (3.5-5.0); BILIRUBIN,TOTAL 0.5 mg/dL (0.0-1.0); CALCIUM 8.5 mg/dL (8.4-10.2); CREATININE, serum 0.73 (0.52-1.25); POTASSIUM 3.7 mmol/L (3.4-5.0); TOTAL PROTEIN 7.8 gm/dL (6.4-8.2)
[2019-04-25 09:18] LABS: COLLECTION METHOD CLEAN CATCH
[2019-04-25 09:25] LABS: MUCOUS Present /lpf; PH 5 (5-8); SQUAMOUS EPITHELIAL 0-2 /hpf; URINE APPEARANCE Clear; URINE BACTERIA None Seen /hpf; URINE BILIRUBIN Negative (NEGATIVE); URINE BLOOD 1+ (NEGATIVE); URINE COLOR Yellow; URINE GLUCOSE Negative (NEGATIVE); URINE KETONE Negative (NEGATIVE); URINE LEUKOCYTE ESTERASE Negative (NEGATIVE); URINE NITRATE Negative (NEGATIVE); URINE PROTEIN(semi-quant) Negative (NEGATIVE); URINE RBC None Seen /hpf; URINE UROBILINOGEN Negative (NEGATIVE)
[2019-04-25 11:24] LABS: GLUCOSE,CSF 68 mg/dL (40-70); TOTAL PROTEIN,CSF 37 mg/dL (15-45)
[2019-04-25 11:58] LABS: CSF APPEARANCE CLEAR; CSF COLOR COLORLESS; CSF RBC 256 /mm3 (0-0)
[2019-04-25 11:59] LABS: CSF RBC 7 /mm3 (0-0)
[2019-04-25 12:13] LABS: CSF MONONUCLEAR 84 % (70-100); CSF POLYMORPHONUCLEAR 16 % (0-6)
[2019-04-25 12:17] LABS: CSF MONONUCLEAR 100 % (70-100); CSF POLYMORPHONUCLEAR 0 % (0-6)
[2019-04-25] MEDS ORDERED: TAMIFLU 75MG75 MG PO (13:02)
[2019-04-25] MEDS ORDERED: NORCO 325 MG-51 TAB PO (13:02)
[2019-04-25 13:13] VITALS: BP 150/77; PULSE 94
== END 2019-04-25 13:15 | disposition home or self-care (01) ==
LOC: COL.ER 07:37
PROVIDERS: Family Medicine
DX: J10.1 Influenza due to other identified influenza virus with other respiratory manifestations (principal); J44.9 Chronic obstructive pulmonary disease, unspecified; F17.210 Nicotine dependence, cigarettes, uncomplicated; Z79.51 Long term (current) use of inhaled steroids
CPT/HCPCS: J1170; J2405; J7030; J7120

== ENCOUNTER 2019-04-27 04:48 | Emergency (ER) | payer MEDICARE, MEDICAID ==
[~2019-04-27] VITALS: Ht 160 cm; Wt 54.5 kg
[~2019-04-27 04:48] MED LIST changes: +TAMIFLU 75MG75 MG PO
[2019-04-27 04:49] VITALS: TEMP 98.3
[2019-04-27 05:38] LABS: BASO % 0.5 % (0.0-2.0); EOS # 0.1 (0.0-0.7); EOS % 1.2 % (0-4.0); GRAN # 4.7 (1.4-6.5); GRAN % 63.9 % (42.2-75.2); HEMATOCRIT 40.5 % (37.0-47.0); HEMOGLOBIN 13.4 g/dl (12.5-16.0); LYMPH % 26.5 % (20.0-51.0); MEAN CELL VOLUME 94 fl (80.0-100.0); MEAN CORPUSCULAR HEMOGLOBIN 31 pg (27.0-31.0); MEAN CORPUSCULAR HGB CONC 33 g/dl (33.0-37.0); MEAN PLATELET VOLUME 10.3 fl (7.4-10.4); MONO # 0.6 (0.1-0.6); MONO % 7.6 % (1.7-9.3); PLATELET COUNT 151 K/mm3 (130-400); RED BLOOD COUNT 4.31 M/mm3 (4.10-5.30); REDCELL DISTRIBUTION WIDTH-CV 13.8 % (11.5-14.5)
[2019-04-27 05:46] LABS: ALANINE AMINOTRANSFERASE 18 U/L (4-34); ALBUMIN 3.8 gm/dL (3.5-5.0); ALKALINE PHOSPHATASE 73 U/L (50-136); ANION GAP 8 mmol/L (7-16); AST,SGOT 71 U/L (15-37); BILIRUBIN,TOTAL 0.4 mg/dL (0.0-1.0); BLOOD UREA NITROGEN 9 mg/dL (7-17); CALCIUM 8.1 mg/dL (8.4-10.2); CARBON DIOXIDE 27 mmol/L (22-30); CHLORIDE 103 mmol/L (98-107); CREATININE, serum 0.71 (0.52-1.25); GLUCOSE 110 mg/dL (74-106); SODIUM 137 mmol/L (137-145)
[2019-04-27 05:52] LABS: INR 1.1 (0.8-3.0); PROTHROMBIN TIME 12.3 SECONDS (9.7-12.8)
[2019-04-27 05:59] LABS: TROPONIN-I < 0.012 ng/mL (0.000-0.035)
[2019-04-27 06:45] VITALS: BP 123/66; PULSE 93
--- NOTE | 2019-04-27 14:11 | NUR ---
[employer]PER[employer] student responded to the ED waiting room for a school social worker consult due to the patient needing shoes and a ride home. 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 Ride confirmation # [id number]. No other needs.
== END 2019-04-27 06:45 | disposition home or self-care (01) ==
LOC: COL.ER 04:48
PROVIDERS: Emergency Medicine
DX: J11.1 Influenza due to unidentified influenza virus with other respiratory manifestations (principal); R07.89 Other chest pain; F17.210 Nicotine dependence, cigarettes, uncomplicated
CPT/HCPCS: J1885; J7030

== ENCOUNTER 2020-02-07 03:31 | Emergency (ER) | payer MEDICARE, MEDICAID ==
[~2020-02-07] VITALS: Ht 152.4 cm; Wt 53.6 kg
[2020-02-07 03:36] VITALS: BP 121/83; PULSE 114; TEMP 98.2
[2020-02-07] MEDS ORDERED: FLEXERIL 1010 MG/TAB PO (03:48)
[2020-02-07] MEDS ORDERED: NEURONTIN300 MG/CAP PO (03:48)
== END 2020-02-07 04:20 | disposition home or self-care (01) ==
LOC: COL.ER 03:31
DX: M54.32 Sciatica, left side (principal); J44.9 Chronic obstructive pulmonary disease, unspecified; F17.210 Nicotine dependence, cigarettes, uncomplicated; Z88.0 Allergy status to penicillin; Z88.8 Allergy status to other drugs, medicaments and biological substances; Z88.6 Allergy status to analgesic agent; Z88.1 Allergy status to other antibiotic agents
CPT/HCPCS: J1100

== ENCOUNTER → 2020-05-07 | Outpatient (CLI) | payer MEDICARE, MEDICAID ==
[~2020-05-07] MED LIST changes: +NEB MC; +NEURONTIN300 MG/CAP PO
== END ==
LOC: COL.RAD 12:41
DX: J44.1 Chronic obstructive pulmonary disease with (acute) exacerbation (principal)

== ENCOUNTER → 2020-05-07 | Outpatient (CLI) | payer MEDICARE, MEDICAID | LOC: MHCPAIN 13:46 | DX: M47.816 Spondylosis without myelopathy or radiculopathy, lumbar region (principal); M53.3 Sacrococcygeal disorders, not elsewhere classified; G89.29 Other chronic pain | CPT/HCPCS: G0463 ==

== ENCOUNTER 2020-08-11 18:16 | Emergency (ER) | payer MEDICARE, MEDICAID ==
[~2020-08-11] VITALS: Ht 160 cm; Wt 54.5 kg
[~2020-08-11 18:16] MED LIST changes: -NEB MC
[2020-08-11 18:30] VITALS: TEMP 98.1
[2020-08-11 20:47] LABS: BASO # 0.1 (0.0-0.2); BASO % 0.6 % (0.0-2.0); EOS # 0.2 (0.0-0.7); EOS % 1.8 % (0-4.0); GRAN # 8.8 (1.4-6.5); GRAN % 71.9 % (42.2-75.2); HEMATOCRIT 44.4 % (37.0-47.0); HEMOGLOBIN 14.5 g/dl (12.5-16.0); LYMPH # 2.4 (1.2-3.4); LYMPH % 19.4 % (20.0-51.0); MEAN CELL VOLUME 96 fl (80.0-100.0); MEAN CORPUSCULAR HEMOGLOBIN 31 pg (27.0-31.0); MEAN CORPUSCULAR HGB CONC 33 g/dl (33.0-37.0); MEAN PLATELET VOLUME 9.4 fl (7.4-10.4); MONO # 0.7 (0.1-0.6); MONO % 5.9 % (1.7-9.3); PLATELET COUNT 278 K/mm3 (130-400); RED BLOOD COUNT 4.64 M/mm3 (4.10-5.30); REDCELL DISTRIBUTION WIDTH-CV 14.1 % (11.5-14.5)
[2020-08-11 20:59] LABS: ALBUMIN 4.4 gm/dL (3.5-5.0); BILIRUBIN,TOTAL 0.7 mg/dL (0.0-1.0); CALCIUM 8.9 mg/dL (8.4-10.2); CREATININE, serum 0.67 (0.52-1.25); POTASSIUM 3.8 mmol/L (3.4-5.0); TOTAL PROTEIN 8.4 gm/dL (6.4-8.2)
[2020-08-11] MEDS ORDERED: ZITHROMAX Z PA250 MG PO (23:01)
[2020-08-11] MEDS ORDERED: PERCOCET 325 MG1 TA2 PO (23:01)
[2020-08-11 23:17] VITALS: BP 147/87; PULSE 84
== END 2020-08-11 23:22 | disposition home or self-care (01) ==
LOC: COL.ER 18:16
PROVIDERS: Personal Emergency Response Attendant
DX: M54.6 Pain in thoracic spine (principal); H66.91 Otitis media, unspecified, right ear; J44.9 Chronic obstructive pulmonary disease, unspecified; F17.210 Nicotine dependence, cigarettes, uncomplicated; Z88.6 Allergy status to analgesic agent
CPT/HCPCS: J2270; J2405; J7030; Q9967

== ENCOUNTER 2020-08-29 18:15 | Emergency (ER) | payer MEDICARE, MEDICAID ==
[~2020-08-29] VITALS: Ht 160 cm; Wt 50.5 kg
[2020-08-29 18:36] LABS: BASO # 0.1 (0.0-0.2); BASO % 0.5 % (0.0-2.0); EOS # 0.2 (0.0-0.7); EOS % 1.4 % (0-4.0); GRAN # 12.4 (1.4-6.5); GRAN % 77.6 % (42.2-75.2); HEMATOCRIT 39.5 % (37.0-47.0); HEMOGLOBIN 13.3 g/dl (12.5-16.0); LYMPH # 2.4 (1.2-3.4); LYMPH % 15.1 % (20.0-51.0); MEAN CELL VOLUME 93 fl (80.0-100.0); MEAN CORPUSCULAR HEMOGLOBIN 31 pg (27.0-31.0); MEAN CORPUSCULAR HGB CONC 34 g/dl (33.0-37.0); MEAN PLATELET VOLUME 9.8 fl (7.4-10.4); MONO # 0.8 (0.1-0.6); PLATELET COUNT 371 K/mm3 (130-400); RED BLOOD COUNT 4.26 M/mm3 (4.10-5.30); REDCELL DISTRIBUTION WIDTH-CV 14.3 % (11.5-14.5)
[2020-08-29 18:45] LABS: ALANINE AMINOTRANSFERASE 22 U/L (4-34); ALBUMIN 3.9 gm/dL (3.5-5.0); ALKALINE PHOSPHATASE 92 U/L (50-136); ANION GAP 5 mmol/L (7-16); AST,SGOT 85 U/L (15-37); BILIRUBIN,TOTAL 0.3 mg/dL (0.0-1.0); BLOOD UREA NITROGEN 8 mg/dL (7-17); CALCIUM 8.6 mg/dL (8.4-10.2); CARBON DIOXIDE 25 mmol/L (22-30); CHLORIDE 108 mmol/L (98-107); CREATININE, serum 0.56 (0.52-1.25); GLUCOSE 110 mg/dL (74-106); POTASSIUM 3.4 mmol/L (3.4-5.0); SODIUM 137 mmol/L (137-145); TOTAL PROTEIN 7.5 gm/dL (6.4-8.2)
[2020-08-29 18:57] LABS: ARTERIAL BLD GAS O2 SATURATION 92.5 % (92-100); ARTERIAL BLD GAS TCO2 CT 26.6; ARTERIAL BLOOD GAS BASE EXCESS 1.2 (-2-2); ARTERIAL BLOOD GAS HCO3 25.4 meq/L (22-26); ARTERIAL BLOOD GAS PCO2 38.8 mmHg (35-45); ARTERIAL BLOOD GAS PO2 60.6 mmHg (80-100); ARTERIAL BLOOD GAS pH 7.43 (7.35-7.45)
[2020-08-29 19:02] LABS: TROPONIN-I < 0.012 ng/mL (0.000-0.035)
[2020-08-29 20:31] LABS: COLLECTION METHOD CLEAN CATCH
[2020-08-29] MEDS ORDERED: DOXYCYCLINE 10100 MG PO (20:33)
[2020-08-29] MEDS ORDERED: PREDNISONE20 MG PO (20:36)
[2020-08-29 20:41] LABS: MUCOUS Present /lpf; PH 5 (5-8); SQUAMOUS EPITHELIAL 0-2 /hpf; URINE APPEARANCE Clear; URINE BACTERIA Rare /hpf; URINE BILIRUBIN Negative (NEGATIVE); URINE BLOOD Negative (NEGATIVE); URINE COLOR Yellow; URINE GLUCOSE Negative (NEGATIVE); URINE KETONE Negative (NEGATIVE); URINE LEUKOCYTE ESTERASE Negative (NEGATIVE); URINE NITRATE Negative (NEGATIVE); URINE PROTEIN(semi-quant) Negative (NEGATIVE); URINE RBC 0-2 /hpf; URINE UROBILINOGEN Negative (NEGATIVE)
[2020-08-29 20:50] LABS: TRICYCLIC ANTIDEPRESS URINE NEGATIVE
[2020-08-29] MEDS ORDERED: NEB MC (22:10)
[2020-08-29] MEDS ORDERED: IPRATROPIUM BROM3 M1 IH (22:10)
[2020-08-29 23:46] VITALS: BP 136/70; PULSE 96; TEMP 98.6
== END 2020-08-29 23:48 | disposition home or self-care (01) ==
LOC: COL.ER 18:15
PROVIDERS: Physician Assistant
DX: J44.1 Chronic obstructive pulmonary disease with (acute) exacerbation (principal); F41.9 Anxiety disorder, unspecified; F19.10 Other psychoactive substance abuse, uncomplicated; F17.210 Nicotine dependence, cigarettes, uncomplicated; Z20.822 Contact with and (suspected) exposure to COVID-19; Z88.1 Allergy status to other antibiotic agents; Z79.899 Other long term (current) drug therapy
CPT/HCPCS: J0696; J1100; J2060; J7030

== ENCOUNTER 2020-09-04 17:49 | Emergency (ER) | payer MEDICARE, MEDICAID ==
[~2020-09-04] VITALS: Ht 160 cm; Wt 50.0 kg
[~2020-09-04 17:49] MED LIST changes: +NEB MC
[2020-09-04 18:00] VITALS: TEMP 97.1
[2020-09-04 19:05] LABS: HEMATOCRIT 44.8 % (37.0-47.0); HEMOGLOBIN 14.9 g/dl (12.5-16.0); MEAN CELL VOLUME 94 fl (80.0-100.0); MEAN CORPUSCULAR HEMOGLOBIN 31 pg (27.0-31.0); MEAN CORPUSCULAR HGB CONC 33 g/dl (33.0-37.0); MEAN PLATELET VOLUME 9.7 fl (7.4-10.4); PLATELET COUNT 369 K/mm3 (130-400); RED BLOOD COUNT 4.76 M/mm3 (4.10-5.30); REDCELL DISTRIBUTION WIDTH-CV 14.3 % (11.5-14.5)
[2020-09-04 19:12] LABS: PROTHROMBIN TIME 10.8 SECONDS (9.7-12.8)
[2020-09-04 19:31] LABS: EOSINOPHIL 1 % (0-4); LYMPHOCYTE 12 % (20.0-51.0); NEUTROPHILS 87 % (42.0-75.2); PLATELET ESTIMATE NORMAL (NORMAL)
[2020-09-04 19:51] LABS: COLLECTION METHOD CLEAN CATCH
[2020-09-04 20:00] LABS: MUCOUS Present /lpf; PH 5 (5-8); SQUAMOUS EPITHELIAL 0-2 /hpf; URINE APPEARANCE Hazy; URINE BACTERIA None Seen /hpf; URINE BILIRUBIN Negative (NEGATIVE); URINE BLOOD 1+ (NEGATIVE); URINE COLOR Yellow; URINE GLUCOSE Negative (NEGATIVE); URINE KETONE Negative (NEGATIVE); URINE LEUKOCYTE ESTERASE Negative (NEGATIVE); URINE NITRATE Negative (NEGATIVE); URINE PROTEIN(semi-quant) 1+ (NEGATIVE); URINE RBC 0-2 /hpf; URINE UROBILINOGEN Negative (NEGATIVE)
[2020-09-04 20:15] LABS: ALANINE AMINOTRANSFERASE 21 U/L (4-34); ALBUMIN 3.9 gm/dL (3.5-5.0); ALKALINE PHOSPHATASE 92 U/L (50-136); ANION GAP 4 mmol/L (7-16); AST,SGOT 84 U/L (15-37); BILIRUBIN,TOTAL 0.5 mg/dL (0.0-1.0); BLOOD UREA NITROGEN 17 mg/dL (7-17); CALCIUM 9.2 mg/dL (8.4-10.2); CARBON DIOXIDE 28 mmol/L (22-30); CHLORIDE 107 mmol/L (98-107); CREATININE, serum 0.67 (0.52-1.25); GLUCOSE 117 mg/dL (74-106); POTASSIUM 3.5 mmol/L (3.4-5.0); SODIUM 139 mmol/L (137-145); TOTAL PROTEIN 7.2 gm/dL (6.4-8.2)
[2020-09-04 20:26] LABS: C-REACTIVE PROTEIN 2.4 mg/dL (0.0-0.9)
[2020-09-04 20:30] LABS: TROPONIN-I < 0.012 ng/mL (0.000-0.035)
[2020-09-04 21:10] VITALS: BP 120/68; PULSE 78
== END 2020-09-04 21:15 | disposition home or self-care (01) ==
LOC: COL.ER 17:49
PROVIDERS: Nurse Practitioner Primary Care
DX: B34.8 Other viral infections of unspecified site (principal); J44.9 Chronic obstructive pulmonary disease, unspecified; F41.0 Panic disorder [episodic paroxysmal anxiety]; F15.10 Other stimulant abuse, uncomplicated; M32.9 Systemic lupus erythematosus, unspecified; R79.1 Abnormal coagulation profile; D72.829 Elevated white blood cell count, unspecified; F17.200 Nicotine dependence, unspecified, uncomplicated; Z20.822 Contact with and (suspected) exposure to COVID-19; Z79.891 Long term (current) use of opiate analgesic; Z79.52 Long term (current) use of systemic steroids; Z79.899 Other long term (current) drug therapy

== ENCOUNTER 2021-08-20 11:39 | Emergency (ER) | payer MEDICARE, MEDICAID ==
[~2021-08-20] VITALS: Ht 157.5 cm; Wt 59.1 kg
[2021-08-20 11:50] VITALS: BP 163/99; TEMP 98.1
[2021-08-20] MEDS ORDERED: CIPRO 500MG TA500 MG PO (12:24)
[2021-08-20 12:50] VITALS: PULSE 88
== END 2021-08-20 12:53 | disposition home or self-care (01) ==
LOC: COL.ER 11:39
DX: H60.92 Unspecified otitis externa, left ear (principal); F17.210 Nicotine dependence, cigarettes, uncomplicated; Z88.0 Allergy status to penicillin; Z88.6 Allergy status to analgesic agent; Z86.69 Personal history of other diseases of the nervous system and sense organs; Z28.310 Unvaccinated for COVID-19
CPT/HCPCS: J1885

== ENCOUNTER → 2022-11-23 | Outpatient (CLI) | payer MEDICARE, MEDICAID ==
[~2022-11-23] MED LIST changes: +CIPRO 500MG TA500 MG PO
== END ==
LOC: MHCPAIN 01-27 12:36
DX: M47.896 Other spondylosis, lumbar region (principal); M54.17 Radiculopathy, lumbosacral region
CPT/HCPCS: G0463

== ENCOUNTER → 2023-01-12 | Outpatient (CLI) | payer MEDICARE, MEDICAID | LOC: COL.RAD 11:22 | DX: M18.12 Unilateral primary osteoarthritis of first carpometacarpal joint, left hand (principal) ==

== ENCOUNTER → 2023-01-12 | Outpatient (CLI) | payer MEDICARE, MEDICAID | LOC: MHCPAIN 10:36 | DX: M47.897 Other spondylosis, lumbosacral region (principal); M54.16 Radiculopathy, lumbar region; M79.642 Pain in left hand | CPT/HCPCS: G0463 ==

== ENCOUNTER → 2023-02-17 | Outpatient (CLI) | payer MEDICARE, MEDICAID | LOC: MHCPAIN 12:45 | DX: M54.16 Radiculopathy, lumbar region (principal) | CPT/HCPCS: J1040; Q9967 ==

== ENCOUNTER → 2023-05-12 | Outpatient (CLI) | payer MEDICARE, MEDICAID | LOC: MHCPAIN 09:13 | DX: M47.817 Spondylosis without myelopathy or radiculopathy, lumbosacral region (principal); M54.50 Low back pain, unspecified | CPT/HCPCS: J0665 ==

== ENCOUNTER → 2023-11-16 | Outpatient (CLI) | payer MEDICARE, MEDICAID | LOC: MHCPAIN 08:29 | DX: M47.817 Spondylosis without myelopathy or radiculopathy, lumbosacral region (principal); M51.26 Other intervertebral disc displacement, lumbar region; M25.552 Pain in left hip | CPT/HCPCS: G0463 ==